=== PATIENT | female | born 1995 | race Caucasian/White ===

== ENCOUNTER 2017-06-24 19:28 | Emergency (ER) | payer OTHER ==
[2017-06-24] MEDS ORDERED: PROMETHAZINE HCL 25 MG TABLET PO ONE (20:29)
[2017-06-24] MEDS ORDERED: ACETAMINOPHEN 325 MG TABLET PO ONE (20:29)
--- NOTE | 2017-06-24 20:30 | ER Document Report ---
ED Medical Screen (RME) - General Chief Complaint: Abdominal Pain Stated Complaint: ABDOMINAL PAIN Time Seen by Provider: 06/24/17 20:29 Notes: Patient was seen today at the [facility]. She is 9 weeks and had a normal ultrasound today per her report. She states after visiting the [facility] she began to have severe crampy abdominal pain. No significant vaginal bleeding or discharge. She denies any vomiting or diarrhea. She has had some nausea. No previous abdominal surgeries. TRAVEL OUTSIDE OF THE [place] IN LAST 30 DAYS: No - Related Data Allergies/Adverse Reactions: No Known Allergies Allergy (Unverified 06/24/17 20:29) Past Medical History - Social History Chew tobacco use (# tins/day): No Frequency of alcohol use: None Drug Abuse: None Renal/ Medical History: Denies: Hx Peritoneal Dialysis Physical Exam - Vital signs Vitals: Temp Pulse Resp BP Pulse Ox 98.3 F 88 14 121/74 99 06/24/17 19:44 06/24/17 19:44 06/24/17 19:44 06/24/17 19:44 06/24/17 19:44 Course - Vital Signs Vital signs: Temp Pulse Resp BP Pulse Ox 98.3 F 88 14 121/74 99 06/24/17 19:44 06/24/17 19:44 06/24/17 19:44 06/24/17 19:44 06/24/17 19:44
[2017-06-24 20:58] LABS: ABSOLUTE EOSINOPHILS # (AUTO) 0.2 10^3/uL (0.0-0.6); ABSOLUTE LYMPHOCYTES (AUTO) 2.5 10^3/uL (0.5-4.7); ABSOLUTE MONOCYTES (AUTO) 0.6 10^3/uL (0.1-1.4); ABSOLUTE NEUT (AUTO) 6.7 10^3/uL (1.7-8.2); BASOPHILS % (AUTO) 0.3 % (0-2); EOSINOPHILS % (AUTO) 1.9 % (0-6); HEMATOCRIT 35.2 % (36.0-47.0); HEMOGLOBIN 12.4 g/dL (12.0-15.5); MEAN CORPUSCULAR HEMOGLOBIN 30.1 pg (27.0-33.4); MEAN CORPUSCULAR HGB CONC 35.2 g/dL (32.0-36.0); MEAN CORPUSCULAR VOLUME 86 fl (80-97); MONOCYTES % (AUTO) 6.4 % (3-13); PLATELET COUNT 257 10^3/uL (150-450); RED BLOOD COUNT 4.12 10^6/uL (3.72-5.28); RED CELL DISTRIBUTION WIDTH 12.6 % (11.5-14.0); SEGMENTED NEUTROPHILS % (AUTO) 66.4 % (42-78); TOTAL CELLS COUNTED % (AUTO) 100 %; WHITE BLOOD COUNT 10.1 10^3/uL (4.0-10.5)
[2017-06-24 21:12] LABS: APPEARANCE,URINE CLOUDY; BILIRUBIN,URINE NEGATIVE (NEGATIVE); COLOR,URINE YELLOW; GLUCOSE, URINE NEGATIVE (NEGATIVE); KETONES,URINE NEGATIVE (NEGATIVE); LEUKOCYTE ESTERASE,URINE MODERATE (NEGATIVE); NITRITE,URINE NEGATIVE (NEGATIVE); PROTEIN,URINE 30 mg/dL (NEGATIVE)
[2017-06-24 21:23] LABS: BLOOD UREA NITROGEN 7 mg/dL (7-20); CALCIUM 9.8 mg/dL (8.4-10.2); GLUCOSE 100 mg/dL (75-110)
[2017-06-24 21:24] LABS: ALANINE AMINOTRANSFERASE 14 U/L (5-35); ALBUMIN 3.9 g/dL (3.7-5.6); ALKALINE PHOSPHATASE 56 U/L (50-135); ANION GAP 13 (5-19); ASPARTATE AMINO TRANSFERASE 14 U/L (5-30); BILIRUBIN,DIRECT 0.2 mg/dL (0.0-0.4); BILIRUBIN,TOTAL 0.2 mg/dL (0.2-1.3); CARBON DIOXIDE 23 mmol/L (22-30); CHLORIDE 105 mmol/L (98-107); LIPASE 119.4 U/L (23-300); POTASSIUM 3.8 mmol/L (3.6-5.0); SODIUM 140.7 mmol/L (137-145); TOTAL PROTEIN 6.3 g/dL (6.3-8.2)
--- NOTE | 2017-06-24 22:18 | ER Document Report ---
ED GI/ - General Chief Complaint: Abdominal Pain Stated Complaint: ABDOMINAL PAIN Time Seen by Provider: 06/24/17 20:29 Mode of Arrival: Ambulatory Information source: Patient TRAVEL OUTSIDE OF THE [place] IN LAST 30 DAYS: No - HPI Notes: 06/24/17 22:50 21-year-old with no significant past medical history who presented today for evaluation of epigastric abdominal pain that started approximately 3 hours prior to her arrival. Patient reported that she ate chicken fingers and shortly after developed epigastric abdominal pain associated with mild nausea but no vomiting. Pain is localized to the epigastric area, no radiation, associated with mild nausea, severity of symptoms is 6 out of 10. Patient is actively at approximately 9 weeks gestation. Patient had a normal ultrasound today with her [facility] [employer] [facility] doctors that confirmed intrauterine today. Patient denies any vaginal bleeding or discharge. Patient was given Tylenol as well as Zofran in triage as well as IV fluids with significant improvement of her symptoms. - Related Data Allergies/Adverse Reactions: No Known Allergies Allergy (Unverified 06/24/17 20:29) Past Medical History - General Information source: Patient - Social History Smoking Status: Former Smoker Chew tobacco use (# tins/day): No Frequency of alcohol use: None Drug Abuse: None Family History: Reviewed & Not Pertinent Patient has suicidal ideation: No Patient has homicidal ideation: No Renal/ Medical History: Denies: Hx Peritoneal Dialysis Review of Systems - Review of Systems Notes: REVIEW OF SYSTEMS: CONSTITUTIONAL: -fevers, -chills EENT: -eye pain, -difficulty swallowing, -nasal congestion CARDIOVASCULAR: -chest pain, -syncope. RESPIRATORY: -cough, -SOB GASTROINTESTINAL: +abdominal pain, +nausea, -vomiting, -diarrhea GENITOURINARY: -dysuria, -hematuria MUSCULOSKELETAL: -back pain, -neck pain SKIN: -rash or skin lesions. HEMATOLOGIC: -easy bruising or bleeding. LYMPHATIC: -swollen, enlarged glands. NEUROLOGICAL: -altered mental status or loss of consciousness, -headache, - neurologic symptoms PSYCHIATRIC: -anxiety, -depression. ALL OTHER SYSTEMS REVIEWED AND NEGATIVE. Physical Exam - Vital signs Vitals: Temp Pulse Resp BP Pulse Ox 98.3 F 88 14 121/74 99 06/24/17 19:44 06/24/17 19:44 06/24/17 19:44 06/24/17 19:44 06/24/17 19:44 - Notes Notes: Reviewed vital signs and nursing note as charted by RN. CONSTITUTIONAL: Alert and oriented and responds appropriately to questions HEAD: Normocephalic; atraumatic EYES: PERRL; Conjunctivae clear, sclerae non-icteric ENT: normal nose; no rhinorrhea; moist mucous membranes; pharynx without lesions noted NECK: Supple without meningismus; non-tender; no cervical lymphadenopathy, no masses CARD: Regular rate and rhythm; no murmurs, no clicks, no rubs, no gallops; symmetric distal pulses RESP: Normal chest excursion without splinting or tachypnea; breath sounds clear and equal bilaterally ABD/GI: Normal bowel sounds; non-distended; soft, Craven sign is negative, mild lower abdominal tenderness without any rebound or guarding BACK: The back appears normal and is non-tender to palpation EXT: Normal ROM in all joints; non-tender to palpation; no cyanosis, no effusions, no edema SKIN: Normal color for age and race; warm; dry; good turgor; capillary refill < 2 seconds; no acute lesions noted NEURO: .Cranial nerves 3-12 intact. Motor strength 5/5 bilaterally. Sensation intact to touch bilaterally. No pronator drift. Finger to nose intact bilaterally PSYCH: The patient's mood and manner are appropriate. Grooming and personal hygiene are appropriate. Course - Re-evaluation Re-evalutation: 06/24/17 22:30 21-year-old with epigastric abdominal pain Differential diagnoses includes pancreatitis, peptic ulcer disease, reflux, cholecystitis, biliary colic, acute cystitis We will obtain basic lab work including CBC, CMP, lipase, urinalysis Control her pain with Tylenol given that she is We will hydrate patient with IV fluids as well as give Zofran for nausea Reassess patient Reassessment 10:50 PM Patient feels significantly better after IV fluids as well as nausea control and Tylenol Given that patient is , concern for possible biliary stasis versus acute cholecystitis Will obtain right upper quadrant ultrasound to rule out acute cholecystitis Disposition per ultrasound results Patient does not have any leukocytosis, urinalysis with mild acute cystitis, will treat with Macrobid 06/25/17 01:56 Patient is doing well, no abdominal pain Right upper quadrant ultrasound without any evidence of acute cholecystitis Likely etiology of her abdominal pain is GERD or peptic ulcer disease, will start patient on Pepcid Macrobid for acute cystitis Follow-up with primary care physician Discussed results of imaging and lab work with patient and family, agree with disposition planning - Vital Signs Vital signs: Temp Pulse Resp BP Pulse Ox 98.3 F 88 14 121/74 99 06/24/17 19:44 06/24/17 19:44 06/24/17 19:44 06/24/17 19:44 06/24/17 19:44 - Laboratory Result Diagrams: 06/24/17 20:45 06/24/17 20:45 Laboratory results interpreted by me: 06/24/17 06/24/17 20:45 20:45 Hct 35.2 L Urine Protein 30 H Urine Urobilinogen 4.0 H Ur Leukocyte Esterase MODERATE H - Diagnostic Test Radiology reviewed: Image reviewed - Right upper quadrant ultrasound without any evidence of acute cholecystitis or gallbladder stones Discharge - Discharge Clinical Impression: Abdominal pain, Acute cystitis during in first trimester Condition: Stable Disposition: HOME, SELF-CARE Instructions: Abdominal Pain ([facility]), Urinary Tract Infection ([facility]) Additional Instructions: Please take antibiotics as prescribed for treatment of your UTI Please take Pepcid for abdominal pain Please come back if there are worsening fevers, chills, nausea vomiting, unable to take her medications Otherwise follow-up with her own [employer] doctor Prescriptions: Famotidine [Pepcid 40 mg Tablet] 40 mg PO DAILY #30 tablet Nitrofurantoin Monohyd/M-Cryst [Macrobid 100 mg Capsule] 1 tab PO BID #20 capsule Referrals: GODFREY MORRIS CNM [Primary Care Provider] - Follow up as needed
--- NOTE | 2017-06-25 01:20 | RADIOLOGY REPORT (SQ) ---
EXAM DESCRIPTION: U/S ABDOMEN COMPLETE W/O DOP CLINICAL HISTORY: 21 years, Female, RUQ ultrasound, eval for acute mckayla COMPARISON: None. LIMITATIONS: None. FINDINGS: Decompressed unremarkable gallbladder, 0.2 cm gallbladder wall thickness, negative sonographic Craven's test, no intra or extrahepatic ductal dilation, 2 mm common duct diameter, liver, partially obscured aorta/pancreas, 11 cm right kidney, 10 cm left kidney, and spleen appear otherwise of normal size, shape, echotexture, and vascularity. No ascites. IMPRESSION: No acute findings. 2011 [employer]- All Rights Reserved
[2017-06-25 02:25] VITALS: BP 128/69
== END 2017-06-25 01:50 | disposition home or self-care (01) ==
LOC: ER 19:28
DX: O23.11 Infections of bladder in pregnancy, first trimester (principal); O26.891 Other specified pregnancy related conditions, first trimester; R10.13 Epigastric pain; R11.0 Nausea; Z87.891 Personal history of nicotine dependence; Z3A.00 Weeks of gestation of pregnancy not specified
CPT/HCPCS: 36415; 76700; 80053; 81001; 83690; 85025; 99284

== ENCOUNTER 2017-11-20 15:53 | Outpatient (CLI) | payer OTHER ==
[2017-11-20 17:23] LABS: APPEARANCE,URINE CLEAR; BILIRUBIN,URINE NEGATIVE (NEGATIVE); COLOR,URINE YELLOW; GLUCOSE, URINE NEGATIVE (NEGATIVE); KETONES,URINE NEGATIVE (NEGATIVE); LEUKOCYTE ESTERASE,URINE TRACE (NEGATIVE); NITRITE,URINE NEGATIVE (NEGATIVE); PROTEIN,URINE NEGATIVE (NEGATIVE); URINE SPECIFIC GRAVITY 1.014; UROBILINOGEN,URINE NEGATIVE mg/dL (<2.0)
[2017-11-20 17:39] LABS: URINE AMPHETAMINES SCREEN NEGATIVE; URINE BARBITURATES SCREEN NEGATIVE; URINE BENZODIAZEPINES SCREEN NEGATIVE; URINE COCAINE SCREEN NEGATIVE; URINE MARIJUANA (THC) SCREEN NEGATIVE; URINE METHADONE SCREEN NEGATIVE; URINE PHENCYCLIDINE SCREEN NEGATIVE
[2017-11-20] MEDS ORDERED: BETAMET ACET/BETAMET NA INJ 6 MG/1 ML ONE (18:59)
[2017-11-20] MEDS ORDERED: BETAMET ACET/BETAMET NA INJ 6 MG/1 ML IM SCH (19:00)
--- NOTE | 2017-11-20 19:16 | L&D Progress Notes ---
PROGRESS NOTES Datetime Report Generated by CPN: 11/20/2017 19:15 PROGRESS NOTE Comment: VE unchanged since 4 PM in office, uc's better since hydrated, closed, soft/50% post ate a good supper contraction pattern improved, decrease in uc's Cel[place] today and repeat tomorrow at 7 PM D/C instructions reviewed Make appt to be seen in office early next week SIGNATURE SIGNATURE: [id number] Assignment: Felisha Saleem MD Signature: with User ID: [email or web address] : with User ID: [email or web address]
== END 2017-11-20 19:20 | disposition home or self-care (01) ==
LOC: LC 15:53
PROVIDERS: ATTEND Student in an Organized Health Care Education/Training Program
PROC: 4A1HXCZ Monitoring of Products of Conception, Cardiac Rate, External Approach (ICD-10-PCS; principal; 2017-11-20)
DX: O47.03 False labor before 37 completed weeks of gestation, third trimester (principal); Z3A.30 30 weeks gestation of pregnancy
CPT/HCPCS: 87086; 81005; 80307; 59899; J0702

== ENCOUNTER → 2017-11-21 | Outpatient (CLI) | payer OTHER ==
[~2017-11-21] MED LIST: BETAMET ACET/BETAMET NA INJ 6 MG/1 ML ONE
== END ==
LOC: LC 18:17
PROVIDERS: ATTEND Obstetrics & Gynecology
DX: Z34.93 Encounter for supervision of normal pregnancy, unspecified, third trimester (principal)
CPT/HCPCS: 96372; J0702

== ENCOUNTER 2017-12-20 17:26 | Outpatient (CLI) | payer OTHER ==
--- NOTE | 2017-12-20 18:20 | Non Stress Test Report ---
Non Stress Test Datetime Report Generated by CPN: 12/20/2017 18:19 DEMOGRAPHIC EGA NST: 34.4 INDICATION Indication for Study: Diabetes Mellitus VITAL SIGNS Temperature - NST: 98.9 Pulse - NST: 100 RESP - NST: 20 NBPSYS NST: 103 NBPDIA NST: 56 MONITORING Monitor Explained: Monitor Explained; Test Explained; Patient Verbalized Understanding Time on Monitor: 12/20/2017 17:35 Time off Monitor: 12/20/2017 18:00 NST Duration: 25 NST INTERVENTIONS NST Interventions: PO Hydration; Reposition Patient Physician Notified NST: Dr Galvan BABY A: [id number] BABY A Movement : Present Contraction Frequency : denies (Annotations: Data stored by N on behalf of user) Accelerations : 15X15 Decelerations : None Variability : Moderate 6-25bpm NST Review: Meets Criteria for Reactive NST NST Review and Verified By : Tim Soria [facility] NST Results: Reactive NST REPORT Report Trigger: Send Report
== END 2017-12-20 18:09 | disposition home or self-care (01) ==
LOC: LC 17:26
PROVIDERS: ATTEND Obstetrics & Gynecology Gynecology
PROC: 4A1HXCZ Monitoring of Products of Conception, Cardiac Rate, External Approach (ICD-10-PCS; principal; 2017-12-20)
DX: O24.410 Gestational diabetes mellitus in pregnancy, diet controlled (principal); Z3A.34 34 weeks gestation of pregnancy
CPT/HCPCS: 59025

== ENCOUNTER 2017-12-24 15:48 | Outpatient (CLI) | payer OTHER ==
[2017-12-24 16:42] LABS: APPEARANCE,URINE CLEAR; BILIRUBIN,URINE NEGATIVE (NEGATIVE); COLOR,URINE STRAW; GLUCOSE, URINE NEGATIVE (NEGATIVE); KETONES,URINE NEGATIVE (NEGATIVE); LEUKOCYTE ESTERASE,URINE NEGATIVE (NEGATIVE); NITRITE,URINE NEGATIVE (NEGATIVE); PROTEIN,URINE NEGATIVE (NEGATIVE); URINE SPECIFIC GRAVITY 1.003; UROBILINOGEN,URINE NEGATIVE mg/dL (<2.0)
[2017-12-24 16:45] LABS: AMNISURE (ROM) NEGATIVE (NEGATIVE)
[2017-12-24 17:13] LABS: URINE AMPHETAMINES SCREEN NEGATIVE; URINE BARBITURATES SCREEN NEGATIVE; URINE BENZODIAZEPINES SCREEN NEGATIVE; URINE COCAINE SCREEN NEGATIVE; URINE MARIJUANA (THC) SCREEN NEGATIVE; URINE METHADONE SCREEN NEGATIVE; URINE PHENCYCLIDINE SCREEN NEGATIVE
--- NOTE | 2017-12-24 19:46 | Non Stress Test Report ---
Non Stress Test Datetime Report Generated by CPN: 12/24/2017 19:45 DEMOGRAPHIC Test Number: 3 EGA NST: 35.1 EGA NST: 35.1 INDICATION Indication for Study: Ordered by Provider Indication for Study: Ordered by Provider Indication for Study (NST) Other: LABOR CHECK MONITORING Monitor Explained: Monitor Explained; Test Explained; Patient Verbalized Understanding Monitor Explained: Monitor Explained; Test Explained; Patient Verbalized Understanding Time on Monitor: 12/24/2017 17:27 Time on Monitor: 12/24/2017 16:17 Time off Monitor: 12/24/2017 19:22 NST Duration: 115 NST INTERVENTIONS NST Interventions: PO Hydration; IV Fluids; Reposition Patient NST Interventions: PO Hydration; Reposition Patient Physician Notified NST: Damon BABY A: [id number] BABY A Contraction Frequency : 3-10 FHR Baseline : 125 Accelerations : 15X15 Decelerations : None Variability : Moderate 6-25bpm NST Review: Meets Criteria for Reactive NST NST Review and Verified By : Cally Cagle, RNC NST Results: Reactive NST REPORT Report Trigger: Send Report
== END 2017-12-24 19:42 | disposition home or self-care (01) ==
LOC: LC 15:48
PROVIDERS: ATTEND Obstetrics & Gynecology
PROC: 4A1HXCZ Monitoring of Products of Conception, Cardiac Rate, External Approach (ICD-10-PCS; principal; 2017-12-24)
DX: O47.03 False labor before 37 completed weeks of gestation, third trimester (principal); Z3A.35 35 weeks gestation of pregnancy
CPT/HCPCS: 59025; 80307; 81001; 84112

== ENCOUNTER 2017-12-27 16:42 | Outpatient (CLI) | payer OTHER | END 2017-12-27 17:27 | disposition home or self-care (01) | LOC: LC 16:42 | PROVIDERS: ATTEND Obstetrics & Gynecology | PROC: 4A1HXCZ Monitoring of Products of Conception, Cardiac Rate, External Approach (ICD-10-PCS; principal; 2017-12-27) | DX: O24.419 Gestational diabetes mellitus in pregnancy, unspecified control (principal); Z3A.38 38 weeks gestation of pregnancy | CPT/HCPCS: 59025 ==

== ENCOUNTER 2018-01-14 16:49 | Outpatient (CLI) | payer OTHER ==
--- NOTE | 2018-01-14 17:04 | Non Stress Test Report ---
Non Stress Test Datetime Report Generated by CPN: 01/14/2018 17:04 DEMOGRAPHIC EGA NST: 35.4 INDICATION Indication for Study: Decreased Movement; Ordered by Provider Indication for Study (NST) Other: sent from the office MONITORING Monitor Explained: Monitor Explained; Test Explained; Patient Verbalized Understanding Time on Monitor: 12/27/2017 17:00 Time off Monitor: 12/27/2017 17:24 Time off Monitor: 12/27/2017 17:24 NST Duration: 24 NST INTERVENTIONS NST Interventions: PO Hydration; Reposition Patient Physician Notified NST: Dr Milo BABY A: [id number] BABY A Movement : Present Contraction Frequency : 0 FHR Baseline : 120 Accelerations : 15X15 Decelerations : None Variability : Moderate 6-25bpm NST Review: Meets Criteria for Reactive NST NST Review and Verified By : Margi Diop RN NST Results: Reactive NST REPORT Report Trigger: Send Report
[2018-01-14 17:32] LABS: ABSOLUTE EOSINOPHILS # (AUTO) 0.1 10^3/uL (0.0-0.6); ABSOLUTE MONOCYTES (AUTO) 0.7 10^3/uL (0.1-1.4); ABSOLUTE NEUT (AUTO) 7.3 10^3/uL (1.7-8.2); BASOPHILS % (AUTO) 0.3 % (0-2); EOSINOPHILS % (AUTO) 1.3 % (0-6); HEMATOCRIT 25.1 % (36.0-47.0); HEMOGLOBIN 8.5 g/dL (12.0-15.5); LYMPHOCYTES % (AUTO) 19.8 % (13-45); MEAN CORPUSCULAR HEMOGLOBIN 28.6 pg (27.0-33.4); MEAN CORPUSCULAR HGB CONC 34.1 g/dL (32.0-36.0); MEAN CORPUSCULAR VOLUME 84 fl (80-97); MONOCYTES % (AUTO) 6.7 % (3-13); PLATELET COUNT 186 10^3/uL (150-450); RED BLOOD COUNT 2.99 10^6/uL (3.72-5.28); RED CELL DISTRIBUTION WIDTH 14.3 % (11.5-14.0); SEGMENTED NEUTROPHILS % (AUTO) 71.9 % (42-78); TOTAL CELLS COUNTED % (AUTO) 100 %; WHITE BLOOD COUNT 10.1 10^3/uL (4.0-10.5)
[2018-01-14 17:37] LABS: APPEARANCE,URINE SLIGHTLY-CLOUDY; BILIRUBIN,URINE NEGATIVE (NEGATIVE); COLOR,URINE YELLOW; GLUCOSE, URINE NEGATIVE (NEGATIVE); KETONES,URINE NEGATIVE (NEGATIVE); LEUKOCYTE ESTERASE,URINE LARGE (NEGATIVE); NITRITE,URINE NEGATIVE (NEGATIVE); PROTEIN,URINE NEGATIVE (NEGATIVE); URINE SPECIFIC GRAVITY 1.008; UROBILINOGEN,URINE NEGATIVE mg/dL (<2.0)
[2018-01-14] MEDS ORDERED: FAMOTIDINE 20 MG TABLET PO ONE (17:41)
[2018-01-14] MEDS ORDERED: FAMOTIDINE 20 MG TABLET ONE (17:43)
[2018-01-14 17:54] LABS: ALANINE AMINOTRANSFERASE 16 U/L (9-52); ALBUMIN 2.9 g/dL (3.5-5.0); ALKALINE PHOSPHATASE 121 U/L (38-126); ANION GAP 9 (5-19); ASPARTATE AMINO TRANSFERASE 19 U/L (14-36); BILIRUBIN,DIRECT 0.2 mg/dL (0.0-0.4); BILIRUBIN,TOTAL 0.2 mg/dL (0.2-1.3); BLOOD UREA NITROGEN 12 mg/dL (7-20); CALCIUM 9.9 mg/dL (8.4-10.2); CARBON DIOXIDE 22 mmol/L (22-30); CHLORIDE 107 mmol/L (98-107); GLUCOSE 84 mg/dL (75-110); POTASSIUM 3.4 mmol/L (3.6-5.0); SODIUM 137.9 mmol/L (137-145); TOTAL PROTEIN 5.5 g/dL (6.3-8.2); URIC ACID 8.2 mg/dL (2.5-6.2)
[2018-01-14 18:02] LABS: URINE AMPHETAMINES SCREEN NEGATIVE; URINE BARBITURATES SCREEN NEGATIVE; URINE BENZODIAZEPINES SCREEN NEGATIVE; URINE COCAINE SCREEN NEGATIVE; URINE MARIJUANA (THC) SCREEN NEGATIVE; URINE METHADONE SCREEN NEGATIVE; URINE PHENCYCLIDINE SCREEN NEGATIVE
[2018-01-14 18:06] LABS: UR PRO/CREAT RATIO RESULT 0.2 mg/mg (0.0-0.2); URINE CREATININE 67.7 mg/dL (16-327); URINE PROTEIN 15.9 mg/dL (<12)
--- NOTE | 2018-01-14 18:28 | Non Stress Test Report ---
Non Stress Test Datetime Report Generated by CPN: 01/14/2018 18:28 DEMOGRAPHIC Test Number: 1 EGA NST: 38.1 INDICATION Indication for Study: Ordered by Provider MONITORING Monitor Explained: Monitor Explained; Test Explained; Patient Verbalized Understanding Time on Monitor: 01/14/2018 17:03 Time off Monitor: 01/14/2018 18:16 NST Duration: 73 NST INTERVENTIONS NST Interventions: PO Hydration Physician Notified NST: Milo BABY A Movement : Present Contraction Frequency : 0 FHR Baseline : 130 Accelerations : 15X15 Decelerations : None Variability : Moderate 6-25bpm NST Review: Meets Criteria for Reactive NST NST Review and Verified By : KERA Youssef Results: Reactive NST REPORT Report Trigger: Send Report
== END 2018-01-14 18:23 | disposition home or self-care (01) ==
LOC: LC 16:49
PROVIDERS: ATTEND Obstetrics & Gynecology
PROC: 4A1HXCZ Monitoring of Products of Conception, Cardiac Rate, External Approach (ICD-10-PCS; principal; 2018-01-14)
DX: Z36.89 Encounter for other specified antenatal screening (principal)
CPT/HCPCS: 36415; 59025; 80053; 80307; 81001; 82570; 83615; 84156; 84550; 85025

== ENCOUNTER 2018-01-16 10:35 | Inpatient (IN) | payer OTHER ==
[2018-01-16 11:42] LABS: ABSOLUTE EOSINOPHILS # (AUTO) 0.1 10^3/uL (0.0-0.6); ABSOLUTE LYMPHOCYTES (AUTO) 2.2 10^3/uL (0.5-4.7); ABSOLUTE MONOCYTES (AUTO) 0.7 10^3/uL (0.1-1.4); ABSOLUTE NEUT (AUTO) 7.6 10^3/uL (1.7-8.2); BASOPHILS % (AUTO) 0.2 % (0-2); HEMATOCRIT 25.1 % (36.0-47.0); HEMOGLOBIN 8.8 g/dL (12.0-15.5); LYMPHOCYTES % (AUTO) 20.7 % (13-45); MEAN CORPUSCULAR HEMOGLOBIN 29.1 pg (27.0-33.4); MEAN CORPUSCULAR HGB CONC 34.9 g/dL (32.0-36.0); MEAN CORPUSCULAR VOLUME 84 fl (80-97); MONOCYTES % (AUTO) 6.7 % (3-13); PLATELET COUNT 173 10^3/uL (150-450); RED BLOOD COUNT 3.01 10^6/uL (3.72-5.28); RED CELL DISTRIBUTION WIDTH 14.6 % (11.5-14.0); SEGMENTED NEUTROPHILS % (AUTO) 71.4 % (42-78); TOTAL CELLS COUNTED % (AUTO) 100 %; WHITE BLOOD COUNT 10.7 10^3/uL (4.0-10.5)
[2018-01-16 12:04] LABS: ALANINE AMINOTRANSFERASE 21 U/L (9-52); ALKALINE PHOSPHATASE 142 U/L (38-126); ANION GAP 9 (5-19); ASPARTATE AMINO TRANSFERASE 23 U/L (14-36); BILIRUBIN,DIRECT 0.2 mg/dL (0.0-0.4); BILIRUBIN,TOTAL 0.3 mg/dL (0.2-1.3); BLOOD UREA NITROGEN 7 mg/dL (7-20); CALCIUM 9.3 mg/dL (8.4-10.2); CARBON DIOXIDE 20 mmol/L (22-30); CHLORIDE 110 mmol/L (98-107); GLUCOSE 77 mg/dL (75-110); POTASSIUM 3.3 mmol/L (3.6-5.0); SODIUM 139.2 mmol/L (137-145); TOTAL PROTEIN 5.6 g/dL (6.3-8.2); URIC ACID 7.6 mg/dL (2.5-6.2)
[2018-01-16 12:11] LABS: 24 HOUR URINE PROTEIN RESULT 161 mg/day (42-225); URINE PROTEIN 14.4 mg/dL (<12)
--- NOTE | 2018-01-16 12:33 | Non Stress Test Report ---
Non Stress Test Datetime Report Generated by CPN: 01/16/2018 12:32 DEMOGRAPHIC Test Number: 5 EGA NST: 38.3 INDICATION Indication for Study: Gestational Hypertension; Diabetes Mellitus MONITORING Monitor Explained: Monitor Explained; Test Explained Time on Monitor: 01/16/2018 12:15 Time off Monitor: 01/16/2018 12:35 NST Duration: 20 NST INTERVENTIONS NST Interventions: None Physician Notified NST: J. Singh CNM BABY A: [id number] BABY A Movement : Present Contraction Frequency : 2-4 FHR Baseline : 125 Accelerations : 15X15 Decelerations : None Variability : Moderate 6-25bpm NST Review: Meets Criteria for Reactive NST NST Review and Verified By : Sushila Prieto RN NST Results: Reactive NST REPORT Report Trigger: Send Report
--- NOTE | 2018-01-16 13:29 | Admission Physical ---
Datetime Report Generated by CPN: 01/16/2018 13:28 CURRENT ADMISSION Hx Assessment: The History has been Reviewed and is Current Chief Complaint: Uterine Contractions; Signs/Symptoms Gestational HTN Indication for Induction: Not Applicable Admit Impression : Term, Intrauterine ; Intact Membranes Admit Impression- Other: Elevated BP's Admit Plan: Admit to Unit; Initiate Labor Induction Protocol ALLERGIES Medication Allergies: No Medication Allergies: No Known Allergies (01/16/2018) Latex: No Latex Allergies Food Allergies: NONE Environmental Allergies: NONE OBSTETRICAL HISTORY EDC: 01/27/2018 00:00 : 2 Para: 1 Term: 1 : 0 SAB: 0 IAB: 0 Ectopic: 0 Livin Cesareans: 0 VBACs: 0 Multiple Births: 0 Gestational Diabetes: Yes Rh Sensitization: No Incompetent Cervix: No SIRISHA: No Infertility: No ART Treatment: No Uterine Anomaly: No IUGR: No Hx Previous C/S: No Macrosomia: No Hx Loss/Stillborn: No PIH: Yes Hx : No Placenta Previa/Abruption: No Depression/PP Depression: No PTL/PROM: No Post Hemorrhage: No Current Procedures: Ultrasound; NST Obstetrical History Comments: G1 - at 38wks, 7lbs 12oz G2 - Current - GDM diet controlled, Gest HTN SEE RECORDS Alcohol: No Marijuana : No Cocaine: No Other Illicit Drugs: No Cigarettes: Never Smoker. 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 Surgery: No Heart Disease: No Hosp/Surgery: No Autoimmune Disorder: No Anesthetic Complications: No Kidney Disease: No Abnormal Pap Smear: No Neuro/Epilepsy: No Psychiatric Disorders: No Other Medical Diseases: No Hepatitis/Liver Disease: No Significant Family History: No Varicosities/Phlebitis: No Trauma/Violence : No Thyroid Dysfunction: No INFECTIOUS HISTORY Gonorrhea: No Genital Herpes: No Chlamydia: No Tuberculosis: No Syphilis: No Hepatitis: No HIV/AIDS Exposure: No Rash or Viral Illness: No HPV: No PHYSICAL EXAM General: Normal HEENT: Deferred Neurologic: Normal Thyroid: Normal Heart: Normal Lungs: Normal Breast: Deferred Back: Normal Abdomen: Normal Genitourinary Exam: Normal Extremities: Normal DTRs: Normal Pelvic Type: Adequate Physical Exam Comments: Pelvis proven for 12-19 GDM Gestational hypertension GBS neg A + + Anti E Vital Signs: Reviewed VAGINAL EXAM Dilatation: 2 Effacement: 70 Station: -1 Contraction Comments: irreg MEMBRANES Membranes: Intact FETUS A EGA: 38.3 Monitoring: External US FHR- Baseline: 150 Variability: Marked >25bpm Decelerations: None Admit Comment: Admited to LD in early labor, labile BP's and irreg uc's. GBS neg, Irreg uc's. plans to breastfeed and get a epidural Cat [address] Saleem aware of admission and plans PLANS FOR LABOR AND DELIVERY Labor and Delivery: None Feeding Preference: Breast Benefit of Breast Feed Discussed: Yes Circumcision: N/A INFORMED CONSENT Assignment: Felisha Saleem MD Signature: with User ID: [email or web address] : with User ID: [email or web address]
[2018-01-16] MEDS ORDERED: FAMOTIDINE 20 MG TABLET PO ONE (13:40)
[2018-01-16] MEDS ORDERED: FAMOTIDINE 20 MG TABLET ONE ×2 (13:44→23:34)
[2018-01-16] MEDS: RINGERS SOLUTION,LACTATED 1,000 ML IV PRN ×3 (14:08→23:43)
--- NOTE | 2018-01-16 16:23 | L&D Progress Notes ---
PROGRESS NOTES Datetime Report Generated by CPN: 01/16/2018 16:23 PROGRESS NOTE Impression: Reassuring Heart Rate Procedures: Artificial ROM Plan: Continue Present Management; Anticipate Vaginal Delivery Vital Signs : Reviewed; Within Normal Limits Comment: VE= 3/70/vtx/-1, AROM clear fluid, Ct 1 strip, irreg uc's VAGINAL EXAM Dilatation: 2 Effacement: 70 Station: -1 Contractions: irreg MEMBRANES Membranes: Ruptured Membranes: Intact Amniotic Fluid Color: Clear FETUS A FHR - Baseline: 110 Monitoring: External US Variability: Moderate 6-25bpm Accelerations: 15X15 : 38.3 SIGNATURE SIGNATURE: [id number];10,[id number];13,[id number] SIGNATURE: 13,[id number];10,[id number];14,[id number] SIGNATURE: 14,[id number];10,[id number] SIGNATURE: 10,[id number];14,[id number] SIGNATURE: 14,[id number];10,[id number] SIGNATURE: 10,[id number];14,[id number] SIGNATURE: 14,[id number];10,[id number] Assignment: Felisha Saleem MD Signature: with User ID: [email or web address] : with User ID: [email or web address]
[2018-01-16] MEDS ORDERED: OXYTOCIN/NORMAL SALINE 20 UNIT/1,000 ML RTUINJ IV PRN ×2 (16:25→21:23)
[2018-01-16] MEDS ORDERED: DINOPROSTONE 10 MG VAGINAL INSERT.SR PV PRN (16:25)
[2018-01-16] MEDS ORDERED: OXYTOCIN/NORMAL SALINE 20 UNIT/1,000 ML RTUINJ ONE ×2 (16:29→22:20)
[2018-01-16] MEDS ORDERED: EPHEDRINE SULFATE INJ 50 MG/1 ML AMPULE ONE (18:29)
[2018-01-16] MEDS ORDERED: BUPIVACAINE HCL 0.25 % INJ/PF (2.5 MG/1 ML) 30 ML VIAL ONE (18:30)
[2018-01-16] MEDS ORDERED: FENTANYL/BUPIVACAINE/NS/PF 300 MCG/150 ML RTUINJ EPI ONE (18:30)
[2018-01-16] MEDS ORDERED: LIDOCAINE 1% INJ-PF (10 MG/ML) 30 ML SDV ONE (19:23)
[2018-01-16] MEDS ORDERED: MISOPROSTOL 0.2 MG TABLET ONE (19:23)
[2018-01-16] MEDS ORDERED: ACETAMINOPHEN 325 MG TABLET PO PRN (21:23)
[2018-01-16] MEDS ORDERED: GLYCERIN/WITCH HAZEL LEAF 1 EACH MED..PAD TP PRN (21:23)
[2018-01-16] MEDS ORDERED: ZOLPIDEM TARTRATE 5 MG TABLET PO PRN (21:23)
[2018-01-16] MEDS ORDERED: MEASLES,MUMPS&RUBELLA VACC/PF 0.5 ML VIAL SUBCUT PRN (21:23)
[2018-01-16] MEDS ORDERED: DIPHENHYDRAMINE HCL 25 MG CAPSULE PO PRN (21:23)
[2018-01-16] MEDS ORDERED: NA PHOS,M-B/NA PHOS,DI-BA (ADULT) 133 ML ENEMA PR PRN (21:23)
[2018-01-16] MEDS ORDERED: DIBUCAINE 1% OINTMENT 28 GM TP PRN (21:23)
[2018-01-16] MEDS ORDERED: MAGNESIUM HYDROXIDE SUSP 30 ML UDCUP PO PRN (21:23)
[2018-01-16] MEDS ORDERED: PROMETHAZINE HCL 25 MG TABLET PO PRN (21:23)
[2018-01-16] MEDS ORDERED: PROMETHAZINE HCL 25 MG SUPP.RECT PR PRN (21:23)
[2018-01-16] MEDS ORDERED: PSEUDOEPHEDRINE HCL 30 MG TABLET PO PRN (21:23)
[2018-01-16] MEDS ORDERED: PROMETHAZINE HCL INJ 25 MG/1 ML VIAL IV PRN (21:23)
[2018-01-16] MEDS ORDERED: BENZOCAINE/MENTHOL AEROSOL SPRAY 56 ML TOP PRN (21:23)
[2018-01-16] MEDS ORDERED: DIPH/PERTUSS(ACELL)/TETANUS VAC/PF 0.5 ML SYR (>=10YO) IM PRN (21:23)
[2018-01-16] MEDS ORDERED: ACETAMINOPHEN WITH CODEINE #3 TABLET PO PRN (21:23)
[2018-01-16] MEDS ORDERED: LOPERAMIDE HCL 2 MG CAPSULE ONE (22:01)
[2018-01-16] MEDS ORDERED: CARBOPROST TROMETHAMINE INJ 250 MCG/1 ML AMPULE ONE (22:01)
[2018-01-16] MEDS ORDERED: FENTANYL CITRATE INJ/PF 100 MCG/2 ML AMPUL ONE (22:11)
[2018-01-16] MEDS ORDERED: MISOPROSTOL 0.2 MG TABLET PR ONE (22:22)
[2018-01-16] MEDS ORDERED: CARBOPROST TROMETHAMINE INJ 250 MCG/1 ML AMPULE IM ONE (22:22)
[2018-01-16] MEDS ORDERED: LOPERAMIDE HCL 2 MG CAPSULE PO PRN (22:31)
[2018-01-16] MEDS ORDERED: FENTANYL CITRATE INJ/PF 100 MCG/2 ML AMPUL IV ONE (22:37)
[2018-01-16 23:10] LABS: HEMATOCRIT 19.7 % (36.0-47.0); MEAN CORPUSCULAR HEMOGLOBIN 28.6 pg (27.0-33.4); MEAN CORPUSCULAR VOLUME 84 fl (80-97); PLATELET COUNT 131 10^3/uL (150-450); RED BLOOD COUNT 2.34 10^6/uL (3.72-5.28); RED CELL DISTRIBUTION WIDTH 14.5 % (11.5-14.0); WHITE BLOOD COUNT 10.1 10^3/uL (4.0-10.5)
[2018-01-16] MEDS ORDERED: IBUPROFEN 800 MG TABLET ONE (23:34)
[2018-01-16] MEDS: FAMOTIDINE 20 MG TABLET PO SCH (23:35)
[2018-01-16] MEDS: IBUPROFEN 800 MG TABLET PO SCH (23:35)
[2018-01-16 23:52] LABS: HEMOGLOBIN 6.7 g/dL (12.0-15.5)
[2018-01-17] MEDS ORDERED: ACETAMINOPHEN WITH CODEINE #3 TABLET ONE ×2 (00:57→11:08)
[2018-01-17 02:56] LABS: ABSOLUTE BASOPHILS # (AUTO) 0.1 10^3/uL (0.0-0.2); ABSOLUTE EOSINOPHILS # (AUTO) 0.1 10^3/uL (0.0-0.6); ABSOLUTE MONOCYTES (AUTO) 0.8 10^3/uL (0.1-1.4); ABSOLUTE NEUT (AUTO) 12.9 10^3/uL (1.7-8.2); BASOPHILS % (AUTO) 0.3 % (0-2); EOSINOPHILS % (AUTO) 0.4 % (0-6); HEMATOCRIT 18.3 % (36.0-47.0); LYMPHOCYTES % (AUTO) 12.9 % (13-45); MEAN CORPUSCULAR HEMOGLOBIN 28.5 pg (27.0-33.4); MEAN CORPUSCULAR HGB CONC 34.3 g/dL (32.0-36.0); MEAN CORPUSCULAR VOLUME 83 fl (80-97); MONOCYTES % (AUTO) 4.9 % (3-13); PLATELET COUNT 148 10^3/uL (150-450); RED BLOOD COUNT 2.21 10^6/uL (3.72-5.28); RED CELL DISTRIBUTION WIDTH 14.4 % (11.5-14.0); SEGMENTED NEUTROPHILS % (AUTO) 81.5 % (42-78); TOTAL CELLS COUNTED % (AUTO) 100 %; WHITE BLOOD COUNT 15.8 10^3/uL (4.0-10.5)
[2018-01-17 03:02] LABS: HEMOGLOBIN 6.3 g/dL (12.0-15.5)
[2018-01-17] MEDS ORDERED: NORMAL SALINE 250 ML IV PRN (03:46)
[2018-01-17] MEDS ORDERED: IBUPROFEN 800 MG TABLET ONE ×2 (06:50→14:06)
[2018-01-17] MEDS: IBUPROFEN 800 MG TABLET PO SCH ×3 (06:51→23:38)
[2018-01-17] MEDS: ACETAMINOPHEN WITH CODEINE #3 TABLET PO PRN (11:09)
[2018-01-17] MEDS ORDERED: SENNOSIDES/DOCUSATE 8.6-50 MG 1 EACH TABLET ONE (11:53)
[2018-01-17] MEDS ORDERED: FAMOTIDINE 20 MG TABLET ONE (11:53)
[2018-01-17] MEDS ORDERED: PRENATAL VITAMIN W DHA CAPSULE PO ONE (11:53)
[2018-01-17] MEDS ORDERED: DOCUSATE SODIUM 100 MG CAPSULE ONE (11:53)
[2018-01-17] MEDS ORDERED: FERROUS SULFATE 325 MG TABLET PO ONE (11:54)
[2018-01-17] MEDS: PRENATAL VITAMIN W DHA CAPSULE PO SCH (11:55)
[2018-01-17] MEDS: DOCUSATE SODIUM 100 MG CAPSULE PO SCH ×2 (11:56→17:54)
[2018-01-17] MEDS: FAMOTIDINE 20 MG TABLET PO SCH ×2 (11:56→23:38)
[2018-01-17] MEDS: FERROUS SULFATE 325 MG TABLET PO SCH ×2 (11:56→17:54)
[2018-01-17] MEDS: SENNOSIDES/DOCUSATE 8.6-50 MG 1 EACH TABLET PO SCH (11:56)
--- NOTE | 2018-01-17 12:56 | Delivery Summary ---
Del Sum A-C Datetime Report Generated by CPN: 01/17/2018 12:56 DELIVERY PERSONNEL DELIVERY PERSONNEL: [id number] Delivery Doctor:: Felisha Saleem MD Labor and Delivery Nurse:: Irene Pretty RNquebracho tanner Nurse:: Todd Godinez RN Collateral Analyst/SCHOOL RESOURCE OFFICER: Lilia Conn, ST MATERNAL INFORMATION Delivery Anesthesia: Epidural Medications After Delivery: Pitocin Drip 20 Units/1000ml NSS; Other-Please Comment Meds After Delivery Comment: Cytotec 1000 mcg TN Pitocin 20 Units/1000ml Estimated Blood Loss (ml): 1100 Maternal Complications: None; Hemorrhage Provider Comments: VFI delivered in TONI presentation with loose nuchal cor easily delivered. Shoulders and body delivered without difficulty. Cord double clamped and cut and to maternal abd for NRP. Placenta delivered intact spontaneously preceeded by 550ml of blood. FF at U-4 but then uterine atony noted. Straight cath performed with minimal UOP. COntinued bleeding until Cytotec placed TN 1000mcg and pitocin initiated. FF at U and good tone with minimal bleeding then repeat bleeding. SSE with no e/o cervical lacerations. Lower uterine segment atony - Hemabate 250mcg placed IM in the lower uterine segment. Improved tone noted. Bleeding significantly improved. CBC now and in 2 hours. Will monitor and may need transfusuion. Mother and baby stable. Benson to gravity placed to monitor UOP and keep bladder drained. LABOR SUMMARY EDC: 01/27/2018 00:00 No. Babies in Womb: 1 Attempted: No Labor Anesthesia: Epidural LABOR INFORMATION Reason for Induction: Gestational Hypertension Onset of Labor: 01/16/2018 16:12 Complete Dilatation: 01/16/2018 21:19 Oxytocin: Induction Group B Beta Strep: Negative Antibiotics # of Doses: 0 Steroids Given: Full Course Reason Steroids Not Administered: Indication MEMBRANES Membranes Rupture Method: Artificial Rupture of Membranes: 01/16/2018 16:12 Length of Rupture (hr): 5.53 Amniotic Fluid Color: Clear Amniotic Fluid Amount: Large Amniotic Fluid Odor: Normal STAGES OF LABOR Stage 1 hr: 5 Stage 1 min: 7 Stage 2 hr: 0 Stage 2 min: 25 Stage 3 hr: 0 Stage 3 min: 3 Total Time in Labor hr: 5 Total Time in Labor min: 35 VAGINAL DELIVERY Episiotomy: None Laceration #1: None Laceration Extension #1: N/A Laceration Repair: Not Applicable Sponge Count Correct: N/A CSECTION DELIVERY Primary Indication: N/A Secondary Indication: N/A CSection Incidence: N/A Labor: N/A Elective: N/A CSection Incision: N/A BABY A INFORMATION Delivery Date/Time: 01/16/2018 21:44 Method of Delivery: Vaginal Born in Route : No : N/A Forceps: N/A Vacuum Extraction: N/A Shoulder Dystocia : No PRESENTATION/POSITION BABY A Presentation: Cephalic Cephalic Presentation: Vertex Vertex Position: Left Occipital Anterior Breech Presentation: N/A PLACENTA INFORMATION BABY A Placenta Delivery Time : 01/16/2018 21:47 Placenta Method of Delivery: Spontaneous Placenta Status: Delivered SCORES BABY A Heart Rate 1 min: >100 bpm Resp Effort 1 min: Good Cry Reflex Irritability 1 min: Cough or Sneeze or Pulls Away Muscle Tone 1 min: Active Motion Color 1 min: Blue/Pale Resuscitation Effort 1 min: Tactile Stimulation SCORE 1 MIN: 8 Heart Rate 5 min: >100 bpm Resp Effort 5 min: Good Cry Reflex Irritability 5 min: Cough or Sneeze or Pulls Away Muscle Tone 5 min: Active Motion Color 5 min: Body [place], Extremities Blue Resuscitation Effort 5 min: Tactile Stimulation SCORE 5 MIN: 9 INFANT INFORMATION BABY A Gestational Age at Delivery: 38.3 Gestational Status: Early Term- 37- 38.6 Weeks Outcome : Liveborn Condition : Stable Sex: Female IDENTIFICATION BABY A Verification Date/Time: 01/16/2018 21:55 ID Band Number: [id number] Mother's Name Verified: Yes Infant RN Verifying Infant: SAmanda Cagle, RNC _ E. Jilek, RN WEIGHT/LENGTH BABY A Birthweight (gm): 3150 Weight (lb): 6 Infant Weight (oz): 15 Infant Length (in): 19.50 Length (cm): 49.53 CORD INFORMATION BABY A No. Cord Vessels: 3 Nuchal Cord : Around Neck x1, Loose Cord Blood Taken: Yes-For Storage (Mom's Blood type +) Suction: Mouth ASSESSMENT BABY A Infant Complications: None Physical Findings at Delivery: Within Normal Limits Infant Respirations: Appears Normal Skin to Skin: Yes Transferred To: Remains with Mother BABY B INFORMATION : N/A SIGNATURES Signature: with User ID: [email or web address]
[2018-01-17 14:42] LABS: HEMATOCRIT 24.1 % (36.0-47.0); HEMOGLOBIN 8.2 g/dL (12.0-15.5); MEAN CORPUSCULAR HEMOGLOBIN 29.3 pg (27.0-33.4); MEAN CORPUSCULAR HGB CONC 34.2 g/dL (32.0-36.0); MEAN CORPUSCULAR VOLUME 86 fl (80-97); PLATELET COUNT 137 10^3/uL (150-450); RED BLOOD COUNT 2.81 10^6/uL (3.72-5.28); RED CELL DISTRIBUTION WIDTH 14.9 % (11.5-14.0); WHITE BLOOD COUNT 12.4 10^3/uL (4.0-10.5)
[2018-01-17 15:39] LABS: MEAN CORPUSCULAR HEMOGLOBIN 29.7 pg (27.0-33.4); MEAN CORPUSCULAR HGB CONC 34.8 g/dL (32.0-36.0); MEAN CORPUSCULAR VOLUME 85 fl (80-97); PLATELET COUNT 124 10^3/uL (150-450); RED BLOOD COUNT 2.69 10^6/uL (3.72-5.28); RED CELL DISTRIBUTION WIDTH 14.8 % (11.5-14.0)
[2018-01-18] MEDS: IBUPROFEN 800 MG TABLET PO SCH (06:13)
[2018-01-18] MEDS: DOCUSATE SODIUM 100 MG CAPSULE PO SCH (09:52)
[2018-01-18] MEDS: SENNOSIDES/DOCUSATE 8.6-50 MG 1 EACH TABLET PO SCH (09:52)
[2018-01-18] MEDS: FERROUS SULFATE 325 MG TABLET PO SCH (09:52)
[2018-01-18] MEDS: FAMOTIDINE 20 MG TABLET PO SCH (09:52)
[2018-01-18] MEDS: PRENATAL VITAMIN W DHA CAPSULE PO SCH (09:52)
[2018-01-18] MEDS: ACETAMINOPHEN WITH CODEINE #3 TABLET PO PRN (09:55)
[2018-01-18] MEDS ORDERED: HYDROCHLOROTHIAZIDE 50 MG TABLET PO SCH (10:00)
--- NOTE | 2018-01-18 11:07 | PDOC DISCHARGE SUMMARY ---
Final Diagnosis Discharge Date: 01/18/18 - Final Diagnosis (1) Gestational hypertension Is this a current diagnosis for this admission?: Yes (2) hemorrhage Is this a current diagnosis for this admission?: Yes (3) Vaginal delivery Is this a current diagnosis for this admission?: Yes Discharge Data - Discharge Medication Home Medications: Vit/Dha [ Multi + Dha Capsule] 1 cap PO DAILY 12/20/17 Reason(s) for Admission: Induction of Labor, Obstetric Complications Procedures: NST Intrapartum Procedure(s): Spontaneous Vaginal Delivery Complication(s): Hemorrhage-Uterine Atony - Diagnosis Test Laboratory: Temp Pulse Resp BP Pulse Ox 98.3 F 66 18 143/83 H 98 01/18/18 08:08 01/18/18 08:08 01/18/18 08:08 01/18/18 08:08 01/18/18 08:08 01/16/18 01/16/18 01/17/18 11:23 22:52 02:44 RBC 3.01 L 2.34 L 2.21 L Hgb 8.8 L 6.7 L D 6.3 L Hct 25.1 L 19.7 L 18.3 L 01/17/18 01/17/18 14:18 15:35 RBC 2.81 L 2.69 L Hgb 8.2 L 8.0 L Hct 24.1 L 23.0 L - Discharge information/Instructions Discharge Activity: Balance Activity w/Rest, Pelvic Rest Discharge Diet: Regular Disposition: HOME, SELF-CARE Follow up with: [facility] in: 1, Weeks
[2018-01-18 13:03] VITALS: BP 155/84
== END 2018-01-18 13:51 | disposition home or self-care (01) | DRG 774 ==
LOC: LC 10:35 → LR 13:10 → 2S 01-17 14:45
PROVIDERS: ADMIT Student in an Organized Health Care Education/Training Program; ATTEND Student in an Organized Health Care Education/Training Program
PROC: 10E0XZZ Delivery of Products of Conception, External Approach (ICD-10-PCS; principal; 2018-01-16)
PROC: 4A1HXCZ Monitoring of Products of Conception, Cardiac Rate, External Approach (ICD-10-PCS; 2018-01-16)
PROC: 10907ZC Drainage of Amniotic Fluid, Therapeutic from Products of Conception, Via Natural or Artificial Opening (ICD-10-PCS; 2018-01-16)
PROC: 30233N1 Transfusion of Nonautologous Red Blood Cells into Peripheral Vein, Percutaneous Approach (ICD-10-PCS; 2018-01-17)
DX: O13.4 Gestational [pregnancy-induced] hypertension without significant proteinuria, complicating childbirth (principal); O72.1 Other immediate postpartum hemorrhage; O69.81X0 Labor and delivery complicated by cord around neck, without compression, not applicable or unspecified; O24.420 Gestational diabetes mellitus in childbirth, diet controlled; Z3A.38 38 weeks gestation of pregnancy; Z37.0 Single live birth
CPT/HCPCS: 36415; 36430; 80053; 83615; 84156; 84550; 85025; 85027; 86592; 86850; 86870; 86900; 86901; 86902; 86920; 86922; 94760; J2590; J3010; J3490; P9016